=== PATIENT | female | born 1970 | race Caucasian/White ===

== ENCOUNTER 2017-05-01 08:52 | Emergency (ER) | payer SELFPAY ==
[~2017-05-01] VITALS: Ht 154.9 cm; Wt 60.0 kg
[2017-05-01] MEDS ORDERED: IBUPROFEN 600MG TABLET PO ONE (11:15)
[2017-05-01] MEDS ORDERED: METHOCARBAMOL 500MG TABLET PO ONE (11:15)
[2017-05-01 11:16] VITALS: BP 149/83
== END 2017-05-01 14:38 | disposition home or self-care (01) ==
LOC: ER 08:57
DX: T14.8XXA Other injury of unspecified body region, initial encounter (principal); M25.512 Pain in left shoulder; I10 Essential (primary) hypertension; E11.9 Type 2 diabetes mellitus without complications; Z98.890 Other specified postprocedural states; V43.62XA Car passenger injured in collision with other type car in traffic accident, initial encounter; Y93.89 Activity, other specified; Y92.488 Other paved roadways as the place of occurrence of the external cause
CPT/HCPCS: 70450; 72100; 72125; 73030; 82962; 99284